=== PATIENT | female | born 1995 | race Caucasian/White ===

== ENCOUNTER 2022-08-07 06:35 | Inpatient (IN) ==
[2022-08-07] MEDS ORDERED: OXYTOCIN 30 UNITS/500 ML BAG IV PRN ×3 (08:01→16:44)
[2022-08-07] MEDS ORDERED: LIDOCAINE 1% LOCAL 20 ML VIAL INFIL PRN (08:01)
[2022-08-07] MEDS ORDERED: PENICILLIN G POTASSIUM 6 MU in DEXTROSE 5% 250 ML IV ONE (08:30)
--- NOTE | 2022-08-07 08:32 | History & Physical Report ---
Date of Service August 07, 2022 Assessment & Plan (1) Spontaneous rupture of amniotic membranes: Plan: 27-year-old G1, P0 at 41 weeks of gestation presenting with SROM since 5:40 AM and contractions, Vital signs stable afebrile, heart rate category 1, GBS positive, Cervix favorable with irregular contractions, Plan to admit, monitor, labs, and penicillin for GBS and augmentation with oxytocin per protocol, All questions were answered. (2) Positive GBS test: (3) Post-term , 40-42 weeks of gestation: Admission and Anticipated Discharge Date Admission Date: August 07, 2022 History of Present Illness Primary Care Provider: NO PCP Patient is a 27-year-old G1, P0 at 41 weeks of gestation who was scheduled for induction of labor for postdates for today she woke up with a gush of fluid leakage at around 5:40 AM this morning it was bloody. She started to have contractions half an hour after the leakage of fluid, they are not very painful yet. She reports good movements. Her has been uncomplicated except GBS positive Allergies Allergy/AdvReac Type Severity Reaction Status Date / Time No Known Allergies Allergy Verified 08/07/22 07:06 Home Medications Medication Instructions Recorded Confirmed Type calcium carbonate 500 mg calcium 500 mg PO DAILY 08/07/22 08/07/22 History (1,250 mg) chewable tablet famotidine 20 mg tablet (Pepcid) 20 mg PO BID 08/07/22 08/07/22 History prenat.vits,quintin,nxo-[id number] 1 tab PO DAILY 08/07/22 08/07/22 History Patient History Medical History Abnormal Pap smear of cervix ASCUS - HPV negative. Repeat PAP 10/2022 Rubella non-immune status, antepartum Surgical History [place] teeth extracted Family History Father Hypertension Hx of CABG Grandmother (Maternal) Stroke Grandfather (Paternal) Diabetes Social History (Updated 08/07/22 @ 07:12 by Vicky Davison RN) Smoking Status: Never smoker Hx Alcohol Use: No Hx Substance Use: No Preferred Language: P[place] Communication Ability: Effective Administration Intern Required: No Beliefs That Will Affect Care: None marital status: marital status details: Vickey Santillan Current Living Situation: Spouse Current Living Situation Comment: Lives with current occupational status: employed current occupation: Adminstrative Ar Manager with [employer] Other Information That Helps Us Care for You: No Feels Safe at Home: Yes Safety Concerns: Feels Safe At This Time Childhood Exposure to Second-Hand Smoke: No Dental Care, Regularly: No Assistive Devices: None BILLING ASSISTANT History Denies history of STDs, no history of genital herpes, chlamydia, gonorrhea Review of Systems as per Subjective / HPI Physical Exam Constitutional: WD/WN, vitals as above well developed, well nourished and comfortable Gastrointestinal (Abdomen): normal bowel sounds, soft, nontender, no hepatosplenomegaly (Gravid, Pepito 8 pounds) Genitourinary: normal external appearance OB Exam Abdomen: + vertex Manual OB Exam: + cervical dilation 2 cm, + cervical effacement 80% and + st ation -2 OB Exam Monitor Tracing: + external uterine monitor used and + category I Nitrazine positive, Bedside ultrasound, vertex, placenta fundal anterior, estimated weight 3884 g. Results & Data Vital Signs (Past 12 Hours) Vital Signs Temp Pulse Resp BP 08/07/22 07:12 37.0 C 18 08/07/22 06:54 68 126/81
[2022-08-07] MEDS: LACTATED RINGER'S 1,000 ML IV PRN ×3 (08:46→15:59)
[2022-08-07 08:50] LABS: Hematocrit (blood only) 39.1 % (37.0-47.0); Hemoglobin 13.4 g/dl (12.0-16.0); Mean Corpuscular Hemoglobin 30.5 pg (25.0-34.0); Mean Corpuscular Hgb Conc 34.3 g/dL (32.0-36.0); Mean Corpuscular Volume 89.1 fL (80.0-100.0); Mean Platelet Volume 10.8 fL (9.4-12.4); Platelet Count 164 K/uL (130-400); RDW Coefficient of Variation 14.3 % (11.5-14.5); RDW Standard Deviation 46.4 fL (36.4-46.3); Red Blood Count 4.39 M/uL (4.20-5.40); White Blood Count 11.06 K/ul (4.8-10.8)
[2022-08-07] MEDS ORDERED: BUTORPHANOL TARTRATE 1 MG/ML VIAL IV ONE (09:38)
[2022-08-07] MEDS ORDERED: ONDANSETRON INJ 2 MG/ML 2 ML VIAL IV PRN ×2 (10:22→10:53)
[2022-08-07] MEDS ORDERED: BUPIVACAINE 0.25% PF 30 ML VIAL ONE (10:23)
[2022-08-07] MEDS ORDERED: SODIUM CHLORIDE 0.9% PF INJ 10 ML VIAL ONE (10:23)
[2022-08-07] MEDS ORDERED: LIDOCAINE 2%/EPINEPHRINE 1:200,000 20 ML PF ONE (10:23)
[2022-08-07] MEDS ORDERED: fentaNYL citrate PF 100 MCG/2 ML VIAL ONE (10:23)
[2022-08-07] MEDS ORDERED: ePHEDrine sulfate 50 MG/ML AMP ONE (10:23)
[2022-08-07] MEDS ORDERED: fentaNYL 2MCG/ML ROPIVACAINE 1.25MG/ML 100 ML BAG EPI ONE (10:24)
[2022-08-07] MEDS ORDERED: diphenhydrAMINE 50 MG/ML VIAL IV PRN (10:53)
[2022-08-07] MEDS ORDERED: NALOXONE HCL 0.4 MG/1 ML VIAL/CARP IV PRN (10:53)
[2022-08-07] MEDS ORDERED: NALOXONE HCL 1 MG in SODIUM CHLORIDE 0.9% 1000ML 1,000 ML IV PRN (10:53)
[2022-08-07] MEDS ORDERED: fentaNYL 2MCG/ML ROPIVACAINE 1.25MG/ML 100 ML BAG EPI PRN (10:53)
[2022-08-07] MEDS ORDERED: ePHEDrine sulfate 50 MG/ML AMP IV PRN (10:53)
[2022-08-07] MEDS ORDERED: NALBUPHINE HCL INJ 10 MG/ML AMP IV PRN (10:53)
[2022-08-07] MEDS ORDERED: PROMETHAZINE HCL 6.25 MG in SODIUM CHLORIDE 0.9% 50 ML IV PRN (10:53)
[2022-08-07] MEDS ORDERED: PENICILLIN G POTASSIUM 3 MU in DEXTROSE 5% 100 ML IV PRN (11:01)
[2022-08-07] MEDS ORDERED: CALCIUM CARBONATE 500 MG CHEWABLE TAB PO PRN (13:35)
--- NOTE | 2022-08-07 13:56 | Obstetrical Progress Note ---
Date of Service August 07, 2022 Assessment & Plan Admission and Anticipated Discharge Date Admission Date: August 07, 2022 Subjective Patient is reevaluated. Received epidural and comfortable now VE; 9/ 90%/ 0, large bag AROM'ed, meconium+ FHR had been categ I Continue to monitor closely Results & Data Vital Signs (Past 12 Hours) Vital Signs Temp Pulse Resp BP Pulse Ox 08/07/22 07:12 37.0 C 18 08/07/22 13:52 99 08/07/22 13:52 71 08/07/22 13:50 69 08/07/22 13:50 117/74 08/07/22 13:40 18 08/07/22 13:40 36.7 C 18 08/07/22 13:47 99 08/07/22 13:47 65 08/07/22 13:47 114/74 08/07/22 13:42 99 08/07/22 13:42 71 08/07/22 13:40 73 08/07/22 13:40 115/72 08/07/22 13:37 99 08/07/22 13:37 77 08/07/22 13:37 74 08/07/22 13:37 125/75 08/07/22 13:32 99 08/07/22 13:32 61 08/07/22 13:30 61 08/07/22 13:30 111/67 08/07/22 13:27 98 08/07/22 13:27 65 08/07/22 13:26 58 L 08/07/22 13:26 111/65 08/07/22 12:51 20 08/07/22 12:51 20 08/07/22 13:22 99 08/07/22 13:22 66 08/07/22 13:21 57 L 08/07/22 13:21 106/66 08/07/22 13:17 98 08/07/22 13:17 62 08/07/22 13:15 61 08/07/22 13:15 111/65 08/07/22 13:12 97 08/07/22 13:12 66 08/07/22 13:12 106/62 08/07/22 13:07 98 08/07/22 13:07 62 08/07/22 13:06 64 08/07/22 13:06 110/69 08/07/22 13:02 98 04/17/23 13:02 59 L 08/07/22 13:00 60 08/07/22 13:00 112/68 08/07/22 12:57 98 08/07/22 12:57 62 08/07/22 12:57 58 L 08/07/22 12:57 111/69 08/07/22 12:52 99 08/07/22 12:52 65 08/07/22 12:51 62 08/07/22 12:51 111/75 08/07/22 12:47 98 08/07/22 12:47 58 L 08/07/22 12:45 60 08/07/22 12:45 113/67 08/07/22 12:42 98 08/07/22 12:42 60 08/07/22 12:42 120/74 08/07/22 12:37 96 08/07/22 12:37 84 08/07/22 12:36 60 08/07/22 12:36 129/84 08/07/22 12:32 98 08/07/22 12:32 82 08/07/22 12:31 73 08/07/22 12:31 130/81 08/07/22 12:27 98 08/07/22 12:27 76 08/07/22 12:27 62 08/07/22 12:27 118/81 08/07/22 12:11 20 08/07/22 12:11 20 08/07/22 12:21 20 08/07/22 12:21 20 08/07/22 12:22 98 08/07/22 12:22 77 08/07/22 12:21 56 L 08/07/22 12:21 124/83 08/07/22 12:17 98 08/07/22 12:17 61 08/07/22 12:15 80 08/07/22 12:15 113/80 08/07/22 12:12 99 08/07/22 12:12 80 08/07/22 12:11 57 L 08/07/22 12:11 121/82 08/07/22 11:46 20 08/07/22 11:46 20 08/07/22 12:07 97 08/07/22 12:07 80 08/07/22 12:07 119/85 08/07/22 12:01 20 08/07/22 12:01 20 08/07/22 12:02 98 08/07/22 12:02 78 08/07/22 11:56 18 08/07/22 11:56 18 08/07/22 12:01 59 L 08/07/22 12:01 117/76 08/07/22 11:50 18 08/07/22 11:50 18 08/07/22 11:57 98 08/07/22 11:57 61 08/07/22 11:56 58 L 08/07/22 11:56 124/82 08/07/22 11:52 99 08/07/22 11:52 64 08/07/22 11:50 64 08/07/22 11:50 119/78 08/07/22 11:47 98 08/07/22 11:47 64 08/07/22 11:46 63 08/07/22 11:46 122/74 08/07/22 11:42 99 08/07/22 11:42 76 08/07/22 11:41 73 08/07/22 11:41 120/85 08/07/22 11:37 99 08/07/22 11:37 66 08/07/22 11:35 63 08/07/22 11:35 121/83 08/07/22 11:32 98 08/07/22 11:32 66 08/07/22 11:31 86 08/07/22 11:31 114/80 08/07/22 11:07 20 08/07/22 11:07 36.4 C L 20 08/07/22 11:25 20 08/07/22 11:25 20 08/07/22 11:27 98 08/07/22 11:27 70 08/07/22 11:25 82 08/07/22 11:25 20 125/74 08/07/22 11:22 98 08/07/22 11:22 92 H 08/07/22 11:22 69 08/07/22 11:22 20 114/68 08/07/22 11:20 85 08/07/22 11:20 20 123/74 08/07/22 11:17 98 08/07/22 11:17 75 08/07/22 11:18 72 08/07/22 11:18 20 125/82 08/07/22 11:16 73 04/17/23 11:16 20 130/89 08/07/22 11:14 69 08/07/22 11:14 20 129/88 08/07/22 11:12 97 08/07/22 11:12 74 08/07/22 11:12 129/77 08/07/22 11:10 68 08/07/22 11:10 130/87 08/07/22 11:08 71 08/07/22 11:08 131/92 08/07/22 11:07 97 08/07/22 11:07 79 08/07/22 11:06 62 08/07/22 11:06 121/86 08/07/22 11:03 77 08/07/22 11:03 125/79 08/07/22 11:02 99 08/07/22 11:02 67 08/07/22 11:00 80 08/07/22 11:00 140/87 08/07/22 10:57 99 08/07/22 10:57 95 H 08/07/22 10:54 93 08/07/22 10:54 62 08/07/22 10:52 99 08/07/22 10:52 79 08/07/22 10:47 97 08/07/22 10:47 65 08/07/22 10:42 98 08/07/22 10:42 68 08/07/22 10:37 96 08/07/22 10:37 61 08/07/22 10:32 97 08/07/22 10:32 91 H 08/07/22 09:52 83 08/07/22 09:52 18 132/94 08/07/22 08:56 20 08/07/22 08:56 36.6 C 20 08/07/22 08:56 85 08/07/22 08:56 124/80 08/07/22 06:54 68 126/81
[2022-08-07] MEDS ORDERED: MINERAL OIL 30 ML UDC ONE (15:50)
[2022-08-07] MEDS ORDERED: bisacodyL 10 MG SUPP PR PRN (16:44)
[2022-08-07] MEDS ORDERED: BENZOCAINE 20% AER SPR 82.5 GM CAN EXT PRN (16:44)
[2022-08-07] MEDS ORDERED: DIPHTHERIA/TETANUS/PERTUSSIS 0.5mL SYR/VIAL (Age 7+yrs) IM ONE (16:44)
[2022-08-07] MEDS ORDERED: HYDROCORTISONE ACETATE 25 MG SUPP PR PRN (16:44)
[2022-08-07] MEDS ORDERED: MEASLES, MUMPS & RUBELLA VIRUS VIAL SQ ONE (16:44)
[2022-08-07] MEDS ORDERED: oxyCODONE/ACETAMINOPHEN 5mg/325mg TAB PO PRN (16:44)
--- NOTE | 2022-08-07 16:50 | Delivery Summary ---
Vaginal Delivery Summary Date of Service August 07, 2022 Vaginal Delivery Summary Patient was found to be fully dilated and desired to push. She pushed for less than half an hour deliver the head without difficulty. Shoulders were delivered with minimal traction. The baby was handed to the mother that her mouth and nose were suctioned. The cord was clamped x2 and cut at 1 minute delay. The baby was moving and crying at that point. The vagina and perineum were checked for lacerations. There was a small first- degree vaginal laceration at the hymenal ring at 4 o'clock position and there was another first-degree labial laceration at the right labia. The placenta was found to be in the vagina and there responses as intact and complete. The uterus was explored and found to be empty and lower segment was cleared of all clots and debris's, EBL was 200 mL and fundus was firm. Then the lacerations were repaired with 2-0 Vicryl at the vagina and 3-0 Vicryl at the labia in a continuous fashion. Excellent hemostasis was achieved. Rest of the vagina and perineum were intact. Mom and baby tolerated procedure well. Baby was a viable female infant, Apgars 8/9 and weight is pending. No complications happened and I was present during whole procedure. At the end of the procedure the sponge needle instrument count was correct x2.
--- NOTE | 2022-08-07 17:16 | Anesthesia Procedure Note ---
Date of Service August 07, 2022 Anesthesia Post Epidural Note Vital Signs Vital Signs: Temp Pulse Resp BP Pulse Ox 36.7 C 78 18 120/70 94 08/07/22 14:41 08/07/22 17:09 08/07/22 14:56 08/07/22 17:09 08/07/22 16:13 Notes Mental Status: alert / awake / arousable Nausea / Vomiting: adequately controlled Pain: adequately controlled Airway Patency, RR, SpO2: stable & adequate BP & HR: stable & adequate Hydration State: stable & adequate Neuraxial Anesthesia: was administered and sensory block is resolving Anesthetic Complications: no major complications apparent and Pt Satisfied with anesthetic care Epidural: Removed without complications and With tip intact
[2022-08-07] MEDS: DOCUSATE SODIUM 100 MG CAP PO SCH (20:44)
[2022-08-08] MEDS: IBUPROFEN 600 MG TAB PO PRN ×3 (00:38→21:19)
[2022-08-08] MEDS: ACETAMINOPHEN 325 MG TAB PO PRN ×3 (03:07→23:46)
[2022-08-08 07:12] LABS: Hematocrit (blood only) 33.6 % (37.0-47.0); Hemoglobin 11.4 g/dl (12.0-16.0); Mean Corpuscular Hemoglobin 30.5 pg (25.0-34.0); Mean Corpuscular Hgb Conc 33.9 g/dL (32.0-36.0); Mean Corpuscular Volume 89.8 fL (80.0-100.0); Mean Platelet Volume 11.2 fL (9.4-12.4); Platelet Count 123 K/uL (130-400); RDW Coefficient of Variation 14.4 % (11.5-14.5); Red Blood Count 3.74 M/uL (4.20-5.40); White Blood Count 11.41 K/ul (4.8-10.8)
[2022-08-08] MEDS: PRENATAL VITAMIN 1 TAB PO SCH (09:42)
[2022-08-08] MEDS: FERROUS SULFATE 325 MG TAB PO SCH (09:42)
[2022-08-08] MEDS: DOCUSATE SODIUM 100 MG CAP PO SCH ×2 (09:42→21:20)
--- NOTE | 2022-08-08 09:57 | Obstetrical Progress Note ---
Date of Service August 08, 2022 Subjective Ambulation: ambulating normally Voiding: no voiding problems Passing Gas:: Yes Diet Tolerance:: regular diet Lochia:: Small Feeding Type:: breast feeding Current Pain Level(1-10): 0 doing well Physical Exam Constitutional WD/WN, vitals as above Gastrointestinal (Abdomen) Inspection/Auscultation: abdomen normal to inspection fundus firm below U Musculoskeletal Extremities: extremities normal to inspection Skin no rashes, warm and dry Neurologic patellar DTR's 2+ bilat, sensation intact Psychiatric A+Ox3, euthymic affect Results & Data Vital Signs (Past 12 Hours) Vital Signs Temp Pulse Resp BP Pulse Ox O2 Del Method 08/08/22 07:50 36.5 C 63 18 110/76 97 Room Air 08/08/22 03:00 36.8 C 70 16 115/71 Room Air 08/08/22 00:30 36.7 C 80 16 117/74 Room Air Laboratory Results Laboratory Results - last 48 hr 08/07/22 08/07/22 08/08/22 07:36 08:32 06:22 WBC 11.06 H 11.41 H RBC 4.39 3.74 L Hgb 13.4 11.4 L Hct 39.1 33.6 L MCV 89.1 89.8 MCH 30.5 30.5 MCHC 34.3 33.9 RDW Std Deviation 46.4 H 47.0 H RDW Coeff of Vandana 14.3 14.4 Plt Count 164 123 L MPV 10.8 11.2 SARS-CoV-2, RNA, NAAT NEGATIVE
[2022-08-08] MEDS ORDERED: MEASLES, MUMPS & RUBELLA VIRUS VIAL SQ ONE (12:51)
[2022-08-08] MEDS ORDERED: bisacodyL 5 MG TABEC PO SCH (20:00)
[2022-08-09] MEDS: IBUPROFEN 600 MG TAB PO PRN ×2 (05:07→10:41)
[2022-08-09 07:09] LABS: Hematocrit (blood only) 33.4 % (37.0-47.0); Hemoglobin 11.3 g/dl (12.0-16.0)
--- NOTE | 2022-08-09 08:39 | Obstetrical Progress Note ---
Date of Service August 09, 2022 Assessment & Plan Admission and Anticipated Discharge Date Admission Date: August 07, 2022 Subjective Patient is seen and examined. She feels well, no complaints. Ambulating without dizziness Voiding without difficulty Tolerating regular diet with out N&V Bleeding is minimal No BURCH/ Change in vision/fever/ chills/ CP/ SOB/ N&V/ Leg pain Breast feeding without problems Vital Signs Temp Pulse Resp BP Pulse Ox O2 Del Method 08/08/22 23:45 36.9 C 66 18 131/90 98 Room Air 08/08/22 19:50 36.7 C 68 18 111/72 97 Room Air 08/08/22 17:00 36.8 C 76 18 117/81 97 Room Air 08/08/22 12:00 36.8 C 78 18 124/85 98 Room Air Lab Results 08/07/22 08/07/22 08/08/22 Range/Units 07:36 08:32 06:22 WBC 11.06 H 11.41 H (4.8-10.8) K/ul RBC 4.39 3.74 L (4.20-5.40) M/uL Hgb 13.4 11.4 L (12.0-16.0) g/dl Hct 39.1 33.6 L (37.0-47.0) % MCV 89.1 89.8 (80.0-100.0) fL MCH 30.5 30.5 (25.0-34.0) pg MCHC 34.3 33.9 (32.0-36.0) g/dL RDW Std Deviation 46.4 H 47.0 H (36.4-46.3) fL RDW Coeff of Vandana 14.3 14.4 (11.5-14.5) % Plt Count 164 123 L (130-400) K/uL MPV 10.8 11.2 (9.4-12.4) fL SARS-CoV-2, RNA, NAAT NEGATIVE (NEGATIVE) 08/09/22 Range/Units 06:25 WBC (4.8-10.8) K/ul RBC (4.20-5.40) M/uL Hgb 11.3 L (12.0-16.0) g/dl Hct 33.4 L (37.0-47.0) % MCV (80.0-100.0) fL MCH (25.0-34.0) pg MCHC (32.0-36.0) g/dL RDW Std Deviation (36.4-46.3) fL RDW Coeff of Vandana (11.5-14.5) % Plt Count (130-400) K/uL MPV (9.4-12.4) fL SARS-CoV-2, RNA, NAAT (NEGATIVE) PE: General: Alert, orientedx3, NAD Abd: soft, NT, fundus firm, below Umbilicus Perineum intact, Lochia rubra minimal Ext; NT, no edema AP: 27 yo s/p , ppd# 2 VSS Afebrile doing well Continue routine care All questions were answered D/C home , f/u in office Results & Data Vital Signs (Past 12 Hours) Vital Signs Temp Pulse Resp BP Pulse Ox O2 Del Method 08/08/22 23:45 36.9 C 66 18 131/90 98 Room Air
[2022-08-09] MEDS: FERROUS SULFATE 325 MG TAB PO SCH (10:40)
[2022-08-09] MEDS: DOCUSATE SODIUM 100 MG CAP PO SCH (10:40)
[2022-08-09] MEDS: PRENATAL VITAMIN 1 TAB PO SCH (10:41)
== END 2022-08-09 14:10 | disposition home or self-care (01) | DRG 807 ==
LOC: 4S1 06:35 → 4E2 19:57
DX: Z37.0 Single live birth; O70.0 First degree perineal laceration during delivery; O99.824 Streptococcus B carrier state complicating childbirth; O48.0 Post-term pregnancy; Z3A.41 41 weeks gestation of pregnancy